=== PATIENT | female | born 1970 | race Caucasian/White ===

== ENCOUNTER → 2024-08-31 | Outpatient (CLI) | payer OTHER ==
--- NOTE | 2024-09-01 11:31 | HMCSR ---
APPROVED REPORT EXAM: Two-dimensional and M-mode echocardiogram with Doppler and color Doppler. 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9 cm2 Mitral Valve MV E Vmax79.9 cm/sDECEL Wief463 msMV Peak GR2 mmHg MV A Vmax58.7 cm/sP 1/2 T60 msMV Mean GR1 mmHg E/A ratio1.4MVA (PHT)3.6 cm2 TDI E/E' Medial8.9E/E' Lateral6.7 Medial E' Peak V9.00 cm/sLateral E' Peak V12.00 cm/s Pulmonary Valve PV Vmax1.0 m/s Tricuspid Valve TR Vmax2.1 m/sRAP (EST) 3 yvVkLVDU22.3 mmHg TR Peak GR19.3 mmHg Left Ventricle The left ventricle is normal size. GLS -17.0%. There is normal LV segmental wall motion. There is bor derline left ventricular wall thinning. LVEF is 60%. The left ventricular diastolic function is norm al. Right Ventricle The right ventricle is normal size. The right ventricular systolic function is normal. Atria The left atrium is mildly dilated. Atrial septum is bowed toward the right atrium. No evidence of PFO by color doppler. The right atrium size is normal. Aortic Valve The aortic valve is normal in structure. No aortic regurgitation is present. There is no aortic valvu lar stenosis. Mitral Valve The mitral valve is mildly thickened and open well. There is mild mitral valve regurgitation noted. T here is no mitral valve stenosis. Tricuspid Valve The tricuspid valve is normal in structure. There is trace of tricuspid valve regurgitation noted. Pulmonic Valve The pulmonary valve is normal in structure. There is no pulmonic valvular regurgitation. Great Vessels The aortic root is normal in size. The IVC is normal in size and collapses >50% with inspiration. Pericardium There is no pericardial effusion. Other Information Quality : Adequate Conclusion LVEF is 60%. Atrial septum is bowed toward the right atrium. No evidence of PFO by color doppler. The left atrium is mildly dilated.
== END | disposition home or self-care (01) ==
LOC: RAH 12:33
PROVIDERS: ATTEND Radiology Radiation Oncology
DX: I34.0 Nonrheumatic mitral (valve) insufficiency (principal); I72.8 Aneurysm of other specified arteries; C50.911 Malignant neoplasm of unspecified site of right female breast
CPT/HCPCS: 93306; 93356